=== PATIENT | female | born 1970 | race Caucasian/White ===

== ENCOUNTER → 2017-03-24 | Outpatient (REF) | payer OTHER ==
[~2017-03-24] MED LIST: ANTI25TA PO; CALCTAB52 PO; FLAX1200 PO; PRENTAB9 PO; PREV30CA6 PO; TOPA25TA PO; VITA200016 PO; WELLTAB PO; [UNRECOGNIZED DRUG - CODE] SL
== END ==
LOC: M LAB REF 16:00
PROVIDERS: ATTEND Physician Assistant
DX: R30.0 Dysuria (principal)

== ENCOUNTER → 2017-10-23 | Outpatient (CLI) | payer OTHER | LOC: M WUC 13:29 | DX: S23.41XS Sprain of ribs, sequela (principal) ==

== ENCOUNTER → 2018-01-10 | Outpatient (CLI) | payer MEDICAID ==
[2018-01-10 18:03] LABS: ANION GAP 12 MEQ/L (8-16); BLOOD UREA NITROGEN 7 MG/DL (7-18); CALCIUM LEVEL 9.1 MG/DL (8.5-10.1); CARBON DIOXIDE LEVEL 25 MEQ/L (21-32); CHLORIDE LEVEL 108 MEQ/L (98-107); CREATININE FOR GFR 0.55 MG/DL (0.55-1.30); GLOMERULAR FILTRATION RATE > 60.0 (>58); GLUCOSE, FASTING 92 MG/DL (70-100); SODIUM LEVEL 145 MEQ/L (136-145)
== END ==
LOC: M WUC 12:40
DX: I10 Essential (primary) hypertension (principal)
CPT/HCPCS: 80048

== ENCOUNTER → 2018-03-25 | Outpatient (CLI) | payer OTHER ==
[2018-03-25 13:13] LABS: ANION GAP 10 MEQ/L (8-16); BLOOD UREA NITROGEN 8 MG/DL (7-18); CALCIUM LEVEL 9.7 MG/DL (8.5-10.1); CARBON DIOXIDE LEVEL 25 MEQ/L (21-32); CHLORIDE LEVEL 104 MEQ/L (98-107); GLOMERULAR FILTRATION RATE > 60.0 (>58); GLUCOSE, FASTING 62 MG/DL (70-100); SODIUM LEVEL 139 MEQ/L (136-145)
== END ==
LOC: M LAB 10:09
DX: I10 Essential (primary) hypertension (principal)
CPT/HCPCS: 80048

== ENCOUNTER → 2018-04-01 | Outpatient (CLI) | payer OTHER | LOC: M WHC 11:01 | DX: Z12.31 Encounter for screening mammogram for malignant neoplasm of breast (principal) | CPT/HCPCS: 77067 ==

== ENCOUNTER → 2018-04-01 | Outpatient (REF) | payer OTHER ==
[2018-04-05 14:16] LABS: HPV HYBRID CAPTURE II Negative (Negative)
== END ==
LOC: M SFHCWAGY 11:52
DX: Z12.4 Encounter for screening for malignant neoplasm of cervix (principal)

== ENCOUNTER → 2018-08-27 | Outpatient (REF) | payer OTHER ==
[2018-08-27 10:33] LABS: INFLUENZA A AMPLIFICATION NEGATIVE (NEGATIVE); INFLUENZA B AMPLIFICATION NEGATIVE (NEGATIVE)
== END ==
LOC: M LAB REF 09:55
PROVIDERS: ATTEND Physician Assistant Medical
DX: J11.1 Influenza due to unidentified influenza virus with other respiratory manifestations (principal)

== ENCOUNTER → 2018-09-01 | Outpatient (CLI) | payer OTHER ==
[2018-09-01 07:31] LABS: C REACTIVE PROTEIN QUANTITATIV < 0.30 MG/DL (0.00-0.30); RHEUMATOID FACTOR QUANT < 10.0 IU/ML (<15.0); URIC ACID 6.6 MG/DL (2.6-6.0)
[2018-09-03 00:07] LABS: ANTINUCLEAR ANTIBODIES DIRECT Negative (Negative); Lyme Disease IgG/IgM Antibodie <0.91 ISR (0.00-0.90); Lyme Disease IgM Ab Quantitati <0.80 index (0.00-0.79)
== END ==
LOC: M LAB 06:22
PROVIDERS: ATTEND Physician Assistant
DX: M19.031 Primary osteoarthritis, right wrist (principal)

== ENCOUNTER 2018-09-20 15:45 | Outpatient (RCR) | payer OTHER | END 2018-09-25 | LOC: M PT 15:45 | PROVIDERS: ATTEND Physician Assistant | DX: Z51.89 Encounter for other specified aftercare (principal); M19.031 Primary osteoarthritis, right wrist ==

== ENCOUNTER → 2019-04-20 | Outpatient (CLI) | payer BC ==
--- NOTE | 2019-04-20 11:00 | REPMRS ---
Patient History The patient states she had a clinical breast exam in 03/2019. Family history of breast cancer at age 50 or over in paternal grandmother, breast cancer at age 50 or over in paternal aunt, breast cancer at age 50 or over in paternal aunt, pancreatic cancer at age 87 in maternal grandmother. Took unspecified hormones for 3 years. 3D TOMOSYNTHESIS WAS PERFORMED. The [facility] lifetime risk for breast cancer is 14.8%. Digital Woman Screen Mammo: April 20, 2019 - Exam #: [id number] Bilateral CC and MLO view(s) were taken. Technologist: Madhavi Stanley, Technologist Prior study comparison: April 01, 2018, bilateral digital woman screen mammo performed at [facility]. April 17, 2015, digital woman screen mammo performed at [facility]. FINDINGS: There are scattered fibroglandular densities. There has been no change in the appearance of the mammogram from the prior studies. There is a mild amount of residual fibroglandular tissue which is fairly symmetric. There is no interval development of dominant mass, architectural distortion, or clustered microcalcification suggestive of malignancy. Assessment: BI-RADS/ACR category 1 mammogram. Negative Mammogram. Recommendation Routine screening mammogram in 1 year (for women over age 40). This mammogram was interpreted with the aid of an FDA-approved computer-aided dectection system. Electronically Signed By: Robert Johnson MD 04/20/19 [id number]
== END ==
LOC: M WHC 08:17
PROVIDERS: ATTEND Nurse Practitioner Women's Health
DX: Z12.31 Encounter for screening mammogram for malignant neoplasm of breast (principal); Z80.3 Family history of malignant neoplasm of breast; Z80.0 Family history of malignant neoplasm of digestive organs

== ENCOUNTER → 2019-07-03 | Outpatient (CLI) | payer BC ==
[2019-07-03 08:25] LABS: BASO # 0.1 10^3/uL (0.0-0.2); BASO % 0.8 % (0.0-1.0); EOS # 0.2 10^3/uL (0.0-0.5); EOS % 2.2 % (0.0-3.0); HEMATOCRIT 40.3 % (36.0-47.0); HEMOGLOBIN 13.4 g/dl (12.0-15.5); LYMPH # 2.1 10^3/uL (1.5-5.0); LYMPH % 26.8 % (24.0-44.0); MEAN CORPUSCULAR HEMOGLOBIN 34.5 pg (27.0-33.0); MEAN CORPUSCULAR HGB CONC 33.3 g/dl (32.0-36.5); MEAN CORPUSCULAR VOLUME 103.9 fl (80.0-96.0); MONO # 0.8 10^3/uL (0.0-0.8); MONO % 10.3 % (0.0-5.0); NEUTROPHILS # 4.7 10^3/uL (1.5-8.5); NEUTROPHILS % 59.5 % (36.0-66.0); PLATELET COUNT, AUTOMATED 290 10^3/uL (150-450); RED BLOOD COUNT 3.88 10^6/uL (4.00-5.40); WHITE BLOOD COUNT 7.9 10^3/uL (4.0-10.0)
[2019-07-03 08:53] LABS: ALBUMIN 2.9 GM/DL (3.2-5.2); ALT/SGPT 19 U/L (12-78); BILIRUBIN,TOTAL 0.2 MG/DL (0.2-1.0); BLOOD UREA NITROGEN 8 MG/DL (7-18); CALCIUM LEVEL 8.4 MG/DL (8.5-10.1); CARBON DIOXIDE LEVEL 24 MEQ/L (21-32); CHLORIDE LEVEL 109 MEQ/L (98-107); CHOLESTEROL LEVEL 162 MG/DL (<200); CHOLESTEROL RISK RATIO 2.612 (<5); CREATININE FOR GFR 0.66 MG/DL (0.55-1.30); FREE T4 0.87 NG/DL (0.76-1.46); GLOMERULAR FILTRATION RATE > 60.0 (>58); GLUCOSE, FASTING 79 MG/DL (70-100); HDL CHOLESTEROL 62 MG/DL (>40); LDL CHOLESTEROL 79 MG/DL (<100); MAGNESIUM LEVEL 2.2 MG/DL (1.8-2.4); NON-HDL-C 100 MG/DL; POTASSIUM SERUM 4.1 MEQ/L (3.5-5.1); SODIUM LEVEL 140 MEQ/L (136-145); TOTAL PROTEIN 6.2 GM/DL (6.4-8.2); TRIGLYCERIDES LEVEL 103 MG/DL (<150)
[2019-07-03 09:02] LABS: FOLATE 6.6 NG/ML; TOTAL 25(OH) VITAMIN D 13.7 NG/ML (30.0-100.0)
[2019-07-03 09:29] LABS: VITAMIN B12 LEVEL 315 PG/ML
[2019-07-03 11:32] LABS: HEMOGLOBIN A1c 5.6 %
== END ==
LOC: M LAB 07:11
PROVIDERS: ATTEND Nurse Practitioner Family
DX: E78.5 Hyperlipidemia, unspecified (principal); E55.9 Vitamin D deficiency, unspecified; I10 Essential (primary) hypertension; F32.9 Major depressive disorder, single episode, unspecified; Z98.84 Bariatric surgery status

== ENCOUNTER → 2019-07-26 | Outpatient (REF) | payer BC, OTHER ==
[2019-07-26 12:08] LABS: BASO # 0.1 10^3/uL (0.0-0.2); BASO % 0.7 % (0.0-1.0); EOS # 0.1 10^3/uL (0.0-0.5); EOS % 1.8 % (0.0-3.0); HEMATOCRIT 39.8 % (36.0-47.0); LYMPH # 1.9 10^3/uL (1.5-5.0); LYMPH % 27.5 % (24.0-44.0); MEAN CORPUSCULAR HEMOGLOBIN 33.2 pg (27.0-33.0); MEAN CORPUSCULAR HGB CONC 32.7 g/dl (32.0-36.5); MEAN CORPUSCULAR VOLUME 101.5 fl (80.0-96.0); MONO # 0.8 10^3/uL (0.0-0.8); NEUTROPHILS # 4.1 10^3/uL (1.5-8.5); NEUTROPHILS % 58.6 % (36.0-66.0); PLATELET COUNT, AUTOMATED 325 10^3/uL (150-450); RED BLOOD COUNT 3.92 10^6/uL (4.00-5.40); WHITE BLOOD COUNT 7.1 10^3/uL (4.0-10.0)
[2019-07-26 12:36] LABS: ERYTHROCYTE SEDIMENTATION RATE 17 mm/hr (0-20)
[2019-07-26 12:46] LABS: BLOOD UREA NITROGEN 13 MG/DL (7-18); C REACTIVE PROTEIN QUANTITATIV < 0.30 MG/DL (0.00-0.30); CALCIUM LEVEL 8.7 MG/DL (8.5-10.1); CARBON DIOXIDE LEVEL 26 MEQ/L (21-32); CHLORIDE LEVEL 105 MEQ/L (98-107); CREATININE FOR GFR 0.74 MG/DL (0.55-1.30); GLOMERULAR FILTRATION RATE > 60.0 (>58); GLUCOSE, FASTING 60 MG/DL (70-100); RHEUMATOID FACTOR QUANT < 10.0 IU/ML (<15.0); SODIUM LEVEL 138 MEQ/L (136-145)
[2019-07-28 00:08] LABS: ANA (HEP2) Negative (.); CYCLIC CITRULLINATED PEPTIDE 7 units (0-19)
== END ==
LOC: M SFHCPLAZ 09:56
PROVIDERS: ATTEND Nurse Practitioner Family
DX: M25.50 Pain in unspecified joint (principal)

== ENCOUNTER → 2019-08-30 | Outpatient (REF) | payer BC, OTHER ==
[2019-08-30 14:40] LABS: ALBUMIN 3.4 GM/DL (3.2-5.2); ALT/SGPT 22 U/L (12-78); BILIRUBIN,TOTAL 0.4 MG/DL (0.2-1.0); BLOOD UREA NITROGEN 11 MG/DL (7-18); CALCIUM LEVEL 8.8 MG/DL (8.5-10.1); CARBON DIOXIDE LEVEL 28 MEQ/L (21-32); CHLORIDE LEVEL 104 MEQ/L (98-107); CREATININE FOR GFR 0.77 MG/DL (0.55-1.30); GLOMERULAR FILTRATION RATE > 60.0 (>58); GLUCOSE, FASTING 81 MG/DL (70-100); NT-PRO BNP 121 PG/ML (<125); POTASSIUM SERUM 4.1 MEQ/L (3.5-5.1); SODIUM LEVEL 137 MEQ/L (136-145); TOTAL PROTEIN 6.7 GM/DL (6.4-8.2)
[2019-08-30 14:46] LABS: CREATININE,RANDOM URINE 30.9 MG/DL; TOTAL PROTEIN,RANDOM URINE 11.7 MG/DL (0.0-12.0)
== END ==
LOC: M SFHCPLAZ 11:22
PROVIDERS: ATTEND Family Medicine
DX: R60.9 Edema, unspecified (principal); B02.29 Other postherpetic nervous system involvement

== ENCOUNTER → 2020-04-16 | Outpatient (CLI) | payer BC ==
[2020-04-16 16:44] LABS: BASO # 0.1 10^3/uL (0.0-0.2); BASO % 0.5 % (0.0-1.0); EOS # 0.2 10^3/uL (0.0-0.5); HEMATOCRIT 38.9 % (36.0-47.0); HEMOGLOBIN 13.1 g/dl (12.0-15.5); LYMPH # 2.3 10^3/uL (1.5-5.0); LYMPH % 24.6 % (24.0-44.0); MEAN CORPUSCULAR HGB CONC 33.7 g/dl (32.0-36.5); MEAN CORPUSCULAR VOLUME 95.1 fl (80.0-96.0); MONO # 0.7 10^3/uL (0.0-0.8); MONO % 7.6 % (0.0-5.0); NEUTROPHILS % 64.9 % (36.0-66.0); PLATELET COUNT, AUTOMATED 234 10^3/uL (150-450); RED BLOOD COUNT 4.09 10^6/uL (4.00-5.40); WHITE BLOOD COUNT 9.3 10^3/uL (4.0-10.0)
[2020-04-16 17:15] LABS: ALBUMIN 3.4 GM/DL (3.2-5.2); ALT/SGPT 23 U/L (12-78); BILIRUBIN,TOTAL 0.2 MG/DL (0.2-1.0); BLOOD UREA NITROGEN 20 MG/DL (7-18); CARBON DIOXIDE LEVEL 26 MEQ/L (21-32); CHLORIDE LEVEL 104 MEQ/L (98-107); CHOLESTEROL LEVEL 182 MG/DL (<200); CREATININE FOR GFR 0.94 MG/DL (0.55-1.30); FREE T4 1.01 NG/DL (0.76-1.46); GLOMERULAR FILTRATION RATE > 60.0 (>58); GLUCOSE, FASTING 87 MG/DL (70-100); HDL CHOLESTEROL 54 MG/DL (>40); LDL CHOLESTEROL 78 MG/DL (<100); MAGNESIUM LEVEL 2.1 MG/DL (1.8-2.4); NON-HDL-C 128 MG/DL; POTASSIUM SERUM 3.9 MEQ/L (3.5-5.1); SODIUM LEVEL 137 MEQ/L (136-145); TOTAL PROTEIN 6.7 GM/DL (6.4-8.2); TRIGLYCERIDES LEVEL 252 MG/DL (<150)
[2020-04-16 17:23] LABS: FOLATE 22.4 NG/ML (>5.4); TOTAL 25(OH) VITAMIN D 57.9 NG/ML (30.0-100.0); VITAMIN B12 LEVEL 506 PG/ML (247-911)
== END ==
LOC: M LAB 16:06
PROVIDERS: ATTEND Nurse Practitioner Family
DX: I10 Essential (primary) hypertension (principal); E55.9 Vitamin D deficiency, unspecified; R42 Dizziness and giddiness; Z13.220 Encounter for screening for lipoid disorders; Z98.84 Bariatric surgery status

== ENCOUNTER → 2020-04-23 | Outpatient (CLI) | payer BC ==
--- NOTE | 2020-04-23 09:56 | REPMRS ---
Patient History The patient states she had a clinical breast exam in March 2020. Family history of breast cancer at age 50 or over in paternal grandmother, breast cancer at age 50 or over in paternal aunt, breast cancer at age 50 or over in paternal aunt, pancreatic cancer at age 87 in maternal grandmother. Took unspecified hormones for 3 years. 3D TOMOSYNTHESIS WAS PERFORMED. The [facility] lifetime risk for breast cancer is 14.6%. Volpara breast density b. Digital Woman Screen Mammo: April 23, 2020 - Exam #: [id number] Bilateral CC and MLO view(s) were taken. Technologist: RT Conner Prior study comparison: April 20, 2019, bilateral digital woman screen mammo performed at [facility]. April 01, 2018, bilateral digital woman screen mammo performed at [facility]. FINDINGS: There are scattered fibroglandular densities. There has been no change in the appearance of the mammogram from the prior studies. There is a mild amount of residual fibroglandular tissue which is fairly symmetric. There is no interval development of dominant mass, architectural distortion, or clustered microcalcification suggestive of malignancy. Assessment: BI-RADS/ACR category 1 mammogram. Negative Mammogram. Recommendation Routine screening mammogram in 1 year (for women over age 40). This mammogram was interpreted with the aid of an FDA-approved computer-aided dectection system. Electronically Signed By: Robert Johnson MD 04/23/20 0955
== END ==
LOC: M WHC 07:30
PROVIDERS: ATTEND Nurse Practitioner Women's Health
DX: Z12.31 Encounter for screening mammogram for malignant neoplasm of breast (principal)

== ENCOUNTER → 2020-07-25 | Outpatient (REF) | payer BC ==
[~2020-07-25] MED LIST changes: +ATEN25TA PO; +D31000TA2 PO; +FLUO20CA22 PO; +HYDR12CA PO; +LANS30CA93 PO; +PRENMIS3 PO; +TELM1TAB33 PO
[2020-07-25 18:04] LABS: BASO % 0.6 % (0.0-1.0); EOS # 0.2 10^3/uL (0.0-0.5); EOS % 2.2 % (0.0-3.0); HEMATOCRIT 35.9 % (36.0-47.0); HEMOGLOBIN 11.8 g/dl (12.0-15.5); LYMPH # 2.1 10^3/uL (1.5-5.0); LYMPH % 30.4 % (24.0-44.0); MEAN CORPUSCULAR HGB CONC 32.9 g/dl (32.0-36.5); MEAN CORPUSCULAR VOLUME 100.3 fl (80.0-96.0); MONO # 0.4 10^3/uL (0.0-0.8); MONO % 5.3 % (0.0-5.0); NEUTROPHILS # 4.2 10^3/uL (1.5-8.5); NEUTROPHILS % 60.9 % (36.0-66.0); PLATELET COUNT, AUTOMATED 268 10^3/uL (150-450); RED BLOOD COUNT 3.58 10^6/uL (4.00-5.40); WHITE BLOOD COUNT 6.8 10^3/uL (4.0-10.0)
[2020-07-25 18:16] LABS: INR 0.93; PROTHROMBIN TIME 12.7 SECONDS (12.5-14.3)
[2020-07-25 18:17] LABS: PARTIAL THROMBOPLASTIN TIME 27.1 SECONDS (24.2-38.5)
[2020-07-25 18:38] LABS: ALBUMIN 3.2 GM/DL (3.2-5.2); ALT/SGPT 25 U/L (12-78); BILIRUBIN,TOTAL 0.1 MG/DL (0.2-1.0); BLOOD UREA NITROGEN 13 MG/DL (7-18); CALCIUM LEVEL 8.6 MG/DL (8.5-10.1); CARBON DIOXIDE LEVEL 28 MEQ/L (21-32); CHLORIDE LEVEL 106 MEQ/L (98-107); CREATININE FOR GFR 0.97 MG/DL (0.55-1.30); GLOMERULAR FILTRATION RATE > 60.0 (>58); GLUCOSE, FASTING 185 MG/DL (70-100); NT-PRO BNP 150 PG/ML (<125); POTASSIUM SERUM 3.8 MEQ/L (3.5-5.1); SODIUM LEVEL 139 MEQ/L (136-145); TOTAL PROTEIN 6.2 GM/DL (6.4-8.2)
== END ==
LOC: M SFHCPLAZ 15:41
PROVIDERS: ATTEND Family Medicine
DX: I10 Essential (primary) hypertension (principal)

== ENCOUNTER → 2020-07-27 | Outpatient (CLI) | payer BC, SELFPAY | LOC: M LABSMTC 10:21 | PROVIDERS: ATTEND Anesthesiology | DX: Z01.812 Encounter for preprocedural laboratory examination (principal); Z20.822 Contact with and (suspected) exposure to COVID-19 ==

== ENCOUNTER 2020-08-01 06:03 | Day surgery (SDC) | payer BC ==
[~2020-08-01] VITALS: Ht 160 cm; Wt 90.7 kg
[2020-08-01] VITALS (7 sets, daily range): BP systolic 121–138; BP diastolic 71–87
[~2020-08-01 06:03] MED LIST changes: +HEPARIN SOD (PORCINE) 5000UNITS/ML 1ML VIAL/SYRINGE SQ ONE; +LIDOCAINE 1% MDV 20ML VIAL SQ PRN; +LR 1,000 ML IV ONE; +ceFAZolin SOD 1 GM in D5W MINI-BAG PLUS 50 ML IV ONE
[2020-08-01] MEDS ORDERED: ROCURONIUM BROMIDE 50 MG/5 ML VIAL As Ordered ONE ×3 (07:23→09:25)
[2020-08-01] MEDS ORDERED: fentaNYL 250 MCG/5 ML INJECTION (J3010) As Ordered ONE (07:23)
[2020-08-01] MEDS ORDERED: propofoL 200 MG/20 ML VIAL As Ordered ONE (07:23)
[2020-08-01] MEDS ORDERED: dexameTHASONE 4 MG/ML 1ML VIAL (J1100 PER 1MG) As Ordered ONE (07:23)
[2020-08-01] MEDS ORDERED: THROMBIN SOLN 20,000 UNITS KIT As Ordered ONE (07:23)
[2020-08-01] MEDS ORDERED: ONDANSETRON 4MG/2ML VIAL As Ordered ONE (07:23)
[2020-08-01] MEDS ORDERED: LIDOCAINE 2% 100MG/5ML SDV (FOR ANES.) As Ordered ONE (07:23)
[2020-08-01] MEDS ORDERED: BUPIVACAINE LIPOSOME/PF 1.3% 20ML VIAL (13.3MG/ML)(EXPAREL)(C9290 PER1MG) As Ordered ONE (07:23)
[2020-08-01] MEDS ORDERED: BACITRACIN PWD 50,000 UNITS VIAL As Ordered ONE (07:24)
[2020-08-01] MEDS ORDERED: MIDAZOLAM INJ 2MG/2ML VIAL (J2250 PER 1MG) As Ordered ONE (07:24)
[2020-08-01] MEDS ORDERED: SCOPOLAMINE 1MG TRANSDERMAL PATCH As Ordered ONE (07:24)
[2020-08-01] MEDS ORDERED: SCOPOLAMINE 1MG TRANSDERMAL PATCH TOP ONE (08:00)
[2020-08-01] MEDS ORDERED: ePHEDrine SULFATE 25 MG/5 ML(5MG/ML) SYRINGE As Ordered ONE ×2 (08:06→09:35)
[2020-08-01] MEDS ORDERED: METOCLOPRAMIDE INJ 10MG/2ML VIAL (J2765 PER 1) As Ordered ONE (08:36)
[2020-08-01] MEDS ORDERED: SUGAMMADEX SODIUM 500 MG/5 ML VIAL (BRIDION) As Ordered ONE (08:41)
[2020-08-01] MEDS ORDERED: HYDROmorphone HCL 2 MG/ML 1ML VIAL (J1170) As Ordered ONE (08:41)
[2020-08-01] MEDS ORDERED: GLYCOPYRROLATE INJ 0.2 MG/ML 2 ML VIAL As Ordered ONE (08:43)
[2020-08-01] MEDS: FLUoxetine 20 MG CAP PO SCH (09:00)
[2020-08-01] MEDS ORDERED: ACETAMINOPHEN 1000MG 100ML IV BTL (OFIRMEV) (J0131 PER 10MG) As Ordered ONE (09:52)
[2020-08-01] MEDS: LR 1,000 ML IV SCH (11:07)
--- NOTE | 2020-08-01 11:07 | ROOPDOC ---
[facility] Report Of Operation Report of Operation DATE OF PROCEDURE: 08/01/20 PREOPERATIVE DIAGNOSIS: Panniculitis POSTOPERATIVE DIAGNOSIS: same FINDINGS: Large pannus PROCEDURE: Extended panniculectomy with rectus muscle plication. SURGEON: Dr Marrero ANESTHESIA: General SPECIMENS: Pannus 3674 gm. ESTIMATED BLOOD LOSS: 200 ml REPLACED: none DRAINS: 10 mm TO x 4 COMPLICATIONS: none POSTOPERATIVE CONDITION: stable Procedure: This is a 50-year-old female status post significant weight loss. Patient has excessive pannus above and mostly below the umbilicus with large mons pubis ptosis. Patient is scheduled for extended panniculectomy. Risks benefits and alternatives discussed with the patient in details. Informed consent confirmed and preoperative holding area. Patient was marked in upright position. She was brought into the operating room, placed in supine position, preoperative antibiotics given, sequential stockings placed in the lower calves, and then general anesthesia is induced. 5000 units heparin given subcutaneously. Fully introduced in the bladder without any difficulties with yellow clear urine present. She was prepped and draped in the usual sterile fashion. Lower abdominal incision made 7 cm above the labial crease along patient's natural suprapubic crease. Incision carried out with 10 blade. Careful sharp dissection with electrocautery and peek cautery was done until the fascia of rectus muscle is identified. Following the musculoaponeurotic fascial plane sup eriorly, the abdominal skin and subcutaneous tissue are undermined. Vessels were identified throughout and either cauterized or suture ligated for hemostasis control. Significant scarring was encountered at the lower mid abdominal area status post section surgery. Fascia completely intact. Infraumbilical flap was divided in the middle to aid the dissection. We continued our dissection until umbilicus was encountered. Rhomboid incision made around the umbilicus and dissection continued until xiphoid process superiorly and costal margins laterally. Rectus muscle evaluated and diathesis was identified 7 cm midline. Rectus muscle was plicated with 0 Vicryl sutures in interrupted fashion, followed by #1 PDS running locked suture. Wound is irrigated with bacitracin normal saline irrigation. Exparel block given into rectus muscle total 16 mL. Patient placed on placed in the reflex position and excess tissue which consists off abdominal skin and subcutaneous tissue was measured and resected using electrocautery. Total weight of the pannus 3674 g. Careful hemostasis was assured. The flap was realigned and was started all closure with deep sutures of 0 Vicryl realigning the mons pubis and closing the lower abdominal incision. 3 mL Monocryl V lock suture used for subcutaneous closure followed by 3-0 Monocryl interrupted sutures as well. Four 10 mm Rahul-Stratton drains were placed throughout lower abdominal incision. New opening was created for the umbilical stump using electrocautery. The umbilicus was brought into view and sutured in place with interrupted 3-Monocryl sutures and 5-0 plain gut sutures in the running fashion. Remaining Exparel was given into the lower abdominal incision and the drain area. Prinio dressing applied to lower abdominal incision, Xeroform to umbilicus, and bulky dressing throughout. Abdominal binder applied. Patient extubated in the operating room without any difficulties and transferred to recovery room in stable condition. ZE MARRERO DO Aug 01, 2020 11:07
--- NOTE | 2020-08-01 11:07 | POST-OPPD ---
Postoperative Procedure Note Date Of Procedure: Aug 01, 2020 PREOPERATIVE DIAGNOSIS: Panniculitis POSTOPERATIVE DIAGNOSIS: same FINDINGS: Large pannus PROCEDURE: Extended panniculectomy with rectus muscle plication. SURGEON: Dr Marrero ANESTHESIA: General SPECIMENS: Pannus 3674 gm. ESTIMATED BLOOD LOSS: 200 ml REPLACED: none DRAINS: 10 mm TO x 4 COMPLICATIONS: none POSTOPERATIVE CONDITION: stable ZE MARRERO DO Aug 01, 2020 11:07
[2020-08-01] MEDS ORDERED: ACETAMINOPHEN TAB 650MG DOSE (2X325MG) PO PRN (11:15)
[2020-08-01] MEDS ORDERED: ONDANSETRON 4MG/2ML VIAL IV PRN ×2 (11:15→11:45)
[2020-08-01] MEDS ORDERED: MORPHINE 4 MG/ML 1ML VIAL/SYRINGE (J2270) IV PRN (11:15)
[2020-08-01] MEDS ORDERED: KETOROLAC TROMETHAMINE 10 MG TAB PO PRN (11:15)
[2020-08-01] MEDS ORDERED: oxyCODONE 5MG TAB PO PRN (11:45)
[2020-08-01] MEDS ORDERED: LR 1,000 ML IV SCH (11:45)
[2020-08-01] MEDS ORDERED: METOCLOPRAMIDE INJ 10MG/2ML VIAL (J2765 PER 1) IV PRN (11:45)
[2020-08-01] MEDS ORDERED: HYDROMORPHONE HCL 0.5 MG/ 0.5 ML SYRINGE (J1170 PER 1) IV PRN (11:45)
[2020-08-01] MEDS ORDERED: fentaNYL 100 MCG/2 ML INJECTION (J3010) IV PRN (11:45)
[2020-08-01] MEDS: PERCOCET 5MG/325MG TAB PO PRN ×2 (13:56→20:06)
[2020-08-01 18:24] LABS: BASO % 0.1 % (0.0-1.0); LYMPH # 0.6 10^3/uL (1.5-5.0); LYMPH % 4.9 % (24.0-44.0); MEAN CORPUSCULAR HEMOGLOBIN 33.6 pg (27.0-33.0); MEAN CORPUSCULAR HGB CONC 33.3 g/dl (32.0-36.5); MEAN CORPUSCULAR VOLUME 100.8 fl (80.0-96.0); MONO # 0.4 10^3/uL (0.0-0.8); MONO % 3.1 % (0.0-5.0); NEUTROPHILS # 10.9 10^3/uL (1.5-8.5); NEUTROPHILS % 91.6 % (36.0-66.0); PLATELET COUNT, AUTOMATED 267 10^3/uL (150-450); RED BLOOD COUNT 3.57 10^6/uL (4.00-5.40); WHITE BLOOD COUNT 11.9 10^3/uL (4.0-10.0)
[2020-08-02 02:00] VITALS: BP 120/71
[2020-08-02] MEDS: PERCOCET 5MG/325MG TAB PO PRN ×3 (02:27→11:44)
[2020-08-02] MEDS: LR 1,000 ML IV SCH (02:28)
[2020-08-02 06:00] VITALS: BP 126/75
[2020-08-02 08:02] VITALS: BP 126/75
[2020-08-02] MEDS: FLUoxetine 20 MG CAP PO SCH (08:03)
[2020-08-02] MEDS ORDERED: TELMISARTAN 20 MG TAB PO SCH (09:00)
[2020-08-02] MEDS ORDERED: atenoloL 25 MG TAB PO SCH (09:00)
--- NOTE | 2020-08-02 10:08 | IPNPDOC ---
Subjective General Date Seen: Aug 02, 2020 Subject Chief Complaint/History The patient is a 50-year-old female admitted with a reason for visit of Panniculitis. Patient is s/p extended panniculectomy with rectus muscle plication postop day 1. Feeling well, pain controlled. Ambulating by herself, tolerating regular diet . Minimal drainage. No dizziness, lightheadedness, chest pain, shortness of breath. Current Medications Current Medications Current Medications Medications (Trade) Dose Ordered Sig/Johnson Route PRN Reason Start Time Stop Time Status Last Admin Dose Admin Acetaminophen (Tylenol Tab) 650 mg Q6H PRN PO MILD PAIN (PS 1-4) 08/01/20 11:15 Atenolol (Tenormin) 25 mg DAILY PO 08/02/20 09:00 08/02/20 08:02 Fentanyl Citrate (Sublimaze) 25 mcg Q5MP PRN IV PAIN LEVEL 5-10 08/01/20 11:45 08/01/20 12:45 DC Fluoxetine HCl (PROzac) 20 mg DAILY PO 08/01/20 09:00 08/02/20 08:03 Hydromorphone HCl (Dilaudid) 0.4 mg Q5MP PRN IV PAIN LEVEL 4-7 08/01/20 11:45 08/01/20 12:45 DC Ketorolac Tromethamine (ToRADol) 10 mg Q6HP PRN PO MODERATE PAIN (PS 5-7) 08/01/20 11:15 08/01/20 12:25 DC Lactated Ringer's 1,000 ml @ 75 mls/hr [id number] IV 08/01/20 11:07 08/02/20 02:28 Lactated Ringer's 1,000 ml @ 100 mls/hr Q10H IV 08/01/20 11:45 08/01/20 12:45 DC Lidocaine HCl (LIDOCAINE 1% MDV 20ml) 0.1 ml ONCE PRN SQ DISCOMFORT BEFORE IV START 08/01/20 06:00 Metoclopramide HCl (REGLAN INJection) 10 mg Q6HP PRN IV NAUSEA OR VOMITING 08/01/20 11:45 08/01/20 12:45 DC Morphine Sulfate (Morphine Sulfate Inj) 4 mg Q4HP PRN IV SEVERE PAIN (PS 8-10) 08/01/20 11:15 08/01/20 15:37 Ondansetron HCl (ZOFRAN INJection) 4 mg Q4H PRN IV NAUSEA OR VOMITING 08/01/20 11:15 Ondansetron HCl (ZOFRAN INJection) 4 mg Q4HP PRN IV NAUSEA OR VOMITING 08/01/20 11:45 08/01/20 12:45 DC Oxycodone HCl (Roxicodone, Oxyir) 5 mg ASDIRECTED PRN PO PAIN LEVEL 1-4 08/01/20 11:45 08/01/20 12:45 DC 08/01/20 11:55 Oxycodone/ Acetaminophen (Percocet 5mg/ 325mg Tablet) 2 tab Q4HP PRN PO PAIN LEVEL 4-7 08/01/20 11:15 08/02/20 08:02 Telmisartan (Micardis) 20 mg DAILY PO 08/02/20 09:00 08/02/20 08:03 Allergies Coded Allergies: No Known Drug Allergies (Verified Allergy, Unknown, 07/23/20) Objective Physical Examination Examination GENERAL APPEARANCE:Patient seen, laying in bed, awake, alert, and oriented. Comfortable, in no acute distress. SKIN: Warm and moist. NECK: Supple, no thyromegaly. No obvious jugular venous distention. LUNGS: Clear to auscultation bilaterally. No wheezing appreciated. HEART: No chest wall abnormalities. Regular rate and rhythm with no murmurs appreciated. ABDOMEN: Abdomen is soft, non-tender, non-distended. Incision intact. Umbilicus viable. TO drains with serosanguinous drainage. 5/20/20/20 cc/24hr each drain. EXTREMITIES: No edema identified. No calf tenderness. Vital Signs Vital Signs Date Time Temp Pulse Resp B/P (MAP) Pulse Ox O2 Delivery O2 Flow Rate FiO2 08/02/20 08:02 18 Room Air 08/02/20 08:02 58 126/75 08/02/20 06:00 98.0 95 08/01/20 11:30 3 I&Os I&O- Last 24 Hours up to 6 AM 08/02/20 06:00 Intake Total 3250 ml Output Total 2460 ml Balance 790 ml Laboratory Data Labs 24H Laboratory Tests 2 08/01/20 17:43: Immature Granulocyte % (Auto) 0.3, Neutrophils (%) (Auto) 91.6H, Lymphocytes (%) (Auto) 4.9L, Monocytes (%) (Auto) 3.1, Eosinophils (%) (Auto) 0.0, Basophils (%) (Auto) 0.1, Neutrophils # (Auto) 10.9H, Lymphocytes # (Auto) 0.6L, Monocytes # (Auto) 0.4, Eosinophils # (Auto) 0.0, Basophils # (Auto) 0.0, Nucleated Red Blood Cells % (auto) 0.0 CBC/BMP Laboratory Tests 08/01/20 17:43 Impression Status post extended panniculectomy with rectus muscle plication postop day 1 Stable for discharge. Monitor TO drains at home, keep abdominal binder in place. Small meals through the day force fluids. Pain control Percocet prescription. Follow-up plastic surgery next week. Plan / VTE VTE Prophylaxis Ordered?: Yes ZE MARRERO DO Aug 02, 2020 10:07
[2020-08-02] MEDS ORDERED: PERCOCET PO (10:14)
== END 2020-08-02 11:50 | disposition home or self-care (01) ==
LOC: M SDC 06:03 → M MS5PR 13:35 → M SDC 08-02 11:50
PROVIDERS: ATTEND Plastic Surgery Surgery of the Hand
DX: M54.07 Panniculitis affecting regions of neck and back, lumbosacral region (principal); L98.7 Excessive and redundant skin and subcutaneous tissue; Z98.84 Bariatric surgery status; I10 Essential (primary) hypertension; K21.9 Gastro-esophageal reflux disease without esophagitis; D50.9 Iron deficiency anemia, unspecified; F17.218 Nicotine dependence, cigarettes, with other nicotine-induced disorders; F41.9 Anxiety disorder, unspecified; F32.9 Major depressive disorder, single episode, unspecified; Z79.899 Other long term (current) drug therapy
CPT/HCPCS: 15830; 15847; 36415; 85025; 86850; 86900; 86901; 88302; 96374; A6024; C9290; J0131; J0690; J1100; J1170; J1644; J2250; J2270; J2405; J2765; J3010

== ENCOUNTER → 2021-01-17 | Outpatient (REF) ==
[~2021-01-17] MED LIST changes: -HEPARIN SOD (PORCINE) 5000UNITS/ML 1ML VIAL/SYRINGE SQ ONE; -LIDOCAINE 1% MDV 20ML VIAL SQ PRN; -LR 1,000 ML IV ONE; +PERCOCET PO; -ceFAZolin SOD 1 GM in D5W MINI-BAG PLUS 50 ML IV ONE
== END ==
LOC: M LABSMTC 10:27
PROVIDERS: ATTEND Pediatrics
DX: Z20.822 Contact with and (suspected) exposure to COVID-19 (principal); Z11.59 Encounter for screening for other viral diseases

== ENCOUNTER → 2021-03-19 | Outpatient (CLI) | payer BC ==
--- NOTE | 2021-03-19 16:14 | REP ---
INDICATION: PELVIC AND PERINEAL PAIN. COMPARISON: 09/14/2011. TECHNIQUE: Transabdominal and transvaginal scanning performed. FINDINGS: Uterine dimensions are 9.4 x 4.9 x 5.6 cm. Endometrial echo is 2 mm in AP dimension and centrally placed. There is diffuse increased echotexture of the anterior uterus. This could represent postsurgical change or diffuse adenomyosis. The bladder measures 9.7 x 9.3 x 9.2cm. The right ovary is not visualized The left ovary dimensions are 2.5 x 2.2 x 2.2 cm. It's Doppler flow was normal with resistive index of 0.44. A complex cystic structure of the left ovary measures 2.1 x 2.0 x 1.8 cm. No free fluid is seen in the cul-de-sac. IMPRESSION: Diffuse increased echotexture in the anterior uterus may represent postsurgical change or adenomyosis. Endometrial thickness approximately 2 mm. Right ovary not visualized. Small complex cystic structure left ovary 2.1 cm. No torsion or free fluid. <Electronically signed by Robert Johnson > 03/19/21 [id number]
== END ==
LOC: M RAD 15:33
PROVIDERS: ATTEND Obstetrics & Gynecology
DX: R10.2 Pelvic and perineal pain (principal)

== ENCOUNTER → 2021-04-30 | Outpatient (CLI) | payer BC ==
--- NOTE | 2021-05-01 08:48 | REPMRS ---
Patient History The patient states she had a clinical breast exam on 04-30-2021. Family history of breast cancer at age 50 or over in paternal grandmother, breast cancer at age 50 or over in paternal aunt, breast cancer at age 50 or over in paternal aunt, pancreatic cancer at age 87 in maternal grandmother. Took unspecified hormones for 3 years. Patient states no breast complaints today. Patient has signed MRS History Sheet. Digital Woman Screen Mammo: April 30, 2021 - Exam #: [id number] Bilateral CC and MLO view(s) were taken. Technologist: Joaquina Bauer, Nurse Anesthetist Prior study comparison: April 23, 2020, bilateral digital woman screen mammo performed at [facility]. April 20, 2019, bilateral digital woman screen mammo performed at [facility]. FINDINGS: There are scattered fibroglandular densities. Screening. Digital screening (2D) mammography was performed bilaterally in the CC and MLO projections. Additionally, breast tomosynthesis (3D mammography) was performed bilaterally in the CC and MLO projections. Todays exam was compared to the prior exam/exams. By history, the patient has no complaints of a palpable breast abnormality or other significant breast complaints. The breasts are unchanged in size and shape. There are no sherri-soft tissue densities or spiculated masses. There is no internal architectural distortion.Once again, stable benign appearing calcifications are seen. There are no suspicious sherri-calcific clusters. Skin thickening or nipple retraction is not present. IMPRESSION: BI-RADS Category 2- Benign Findings. There is no evidence of malignant alteration of the breasts. Followup examination recommended in one year. The Volpara volumetric breast density category is B, there are scattered areas of fibroglandular densities. This mammogram was read with the assistance of [employer],an FDA approved computer aided detection system for mammography. The lifetime Tyrer-Cuzick score is 14 % Negative x-ray reports should not delay surgical consultation if a dominant or clinically suspicious mass is present. Not all breast cancers can be identified by mammography. Therefore, we recommend that you continue to perform regular breast self-examination and physical examination and then promptly contact your physician of any concerns or changes. Adenosis and dense breasts may obscure an underlying neoplasm. Assessment: BI-RADS/ACR category 2 mammogram. Benign Findings. Recommendation Routine screening mammogram of both breasts in 1 year. Electronically Signed By: Alex Yuen DO 05/01/21 [id number]
== END ==
LOC: M WHC 14:19
PROVIDERS: ATTEND Nurse Practitioner Women's Health
DX: Z12.31 Encounter for screening mammogram for malignant neoplasm of breast (principal); Z80.3 Family history of malignant neoplasm of breast

== ENCOUNTER → 2021-04-30 | Outpatient (REF) | payer BC | LOC: M SFHCWAGY 18:43 | PROVIDERS: ATTEND Nurse Practitioner Women's Health | DX: Z12.4 Encounter for screening for malignant neoplasm of cervix (principal) | CPT/HCPCS: 87624; G0123 ==

== ENCOUNTER → 2021-07-09 | Outpatient (REF) | LOC: M LABSMTC 11:25 | PROVIDERS: ATTEND Pediatrics | DX: Z11.52 Encounter for screening for COVID-19 (principal) ==

== ENCOUNTER → 2021-07-18 | Outpatient (CLI) | payer BC ==
[2021-07-18 13:25] LABS: BASO # 0.1 10^3/uL (0.0-0.2); BASO % 0.8 % (0.0-1.0); EOS # 0.2 10^3/uL (0.0-0.5); EOS % 2.2 % (0.0-3.0); HEMATOCRIT 40.6 % (36.0-47.0); HEMOGLOBIN 13.7 g/dl (12.0-15.5); LYMPH # 2.1 10^3/uL (1.5-5.0); LYMPH % 29.3 % (24.0-44.0); MEAN CORPUSCULAR HEMOGLOBIN 32.5 pg (27.0-33.0); MEAN CORPUSCULAR HGB CONC 33.7 g/dl (32.0-36.5); MEAN CORPUSCULAR VOLUME 96.4 fl (80.0-96.0); MONO # 0.6 10^3/uL (0.0-0.8); MONO % 8.3 % (2.0-8.0); NEUTROPHILS # 4.3 10^3/uL (1.5-8.5); NEUTROPHILS % 58.9 % (36.0-66.0); PLATELET COUNT, AUTOMATED 301 10^3/uL (150-450); RED BLOOD COUNT 4.21 10^6/uL (4.00-5.40); WHITE BLOOD COUNT 7.3 10^3/uL (4.0-10.0)
[2021-07-18 13:43] LABS: HEMOGLOBIN A1c 5.1 %
[2021-07-18 13:52] LABS: INR 0.98; PROTHROMBIN TIME 13.4 SECONDS (12.7-14.5)
[2021-07-18 13:53] LABS: PARTIAL THROMBOPLASTIN TIME 29.9 SECONDS (25.9-37.0)
[2021-07-18 13:56] LABS: ALBUMIN 3.1 GM/DL (3.2-5.2); ALT/SGPT 26 U/L (12-78); BILIRUBIN,TOTAL 0.3 MG/DL (0.2-1.0); BLOOD UREA NITROGEN 9 MG/DL (7-18); CALCIUM LEVEL 8.6 MG/DL (8.5-10.1); CARBON DIOXIDE LEVEL 28 MEQ/L (21-32); CHLORIDE LEVEL 109 MEQ/L (98-107); CREATININE FOR GFR 0.77 MG/DL (0.55-1.30); FERRITIN 21 NG/ML (8-252); GLOMERULAR FILTRATION RATE > 60.0 (>58); GLUCOSE, FASTING 85 MG/DL (70-100); NT-PRO BNP 195 PG/ML (<125); POTASSIUM SERUM 4.4 MEQ/L (3.5-5.1); SODIUM LEVEL 140 MEQ/L (136-145); TOTAL PROTEIN 6.2 GM/DL (6.4-8.2)
== END ==
LOC: M PLALAB 11:23
PROVIDERS: ATTEND Family Medicine
DX: Z01.818 Encounter for other preprocedural examination (principal); I10 Essential (primary) hypertension; D75.89 Other specified diseases of blood and blood-forming organs

== ENCOUNTER → 2021-08-02 | Outpatient (CLI) | payer BC ==
[~2021-08-02] MED LIST changes: +AZEL0.05 OU; +CALC1TAB30 PO; +FOLI1TAB11 PO; +GNP1000T11 PO; +[UNRECOGNIZED DRUG - CODE] PO
== END ==
LOC: M LABSMTC 11:54
PROVIDERS: ATTEND Anesthesiology
DX: Z01.818 Encounter for other preprocedural examination (principal); Z11.52 Encounter for screening for COVID-19

== ENCOUNTER 2021-08-07 06:01 | Day surgery (SDC) | payer BC ==
[~2021-08-07] VITALS: Ht 160 cm; Wt 99.8 kg
[2021-08-07] MEDS ORDERED: ceFAZolin 2 GM/D5W 50 ML IV BAG (J0690 PER 500MG) As Ordered ONE (06:43)
[2021-08-07] MEDS ORDERED: fentaNYL 100 MCG/2 ML INJECTION As Ordered ONE ×2 (07:10→08:33)
[2021-08-07] MEDS ORDERED: MIDAZOLAM INJ 2MG/2ML VIAL (J2250 PER 1MG) As Ordered ONE (07:10)
[2021-08-07] MEDS ORDERED: LIDOCAINE 2% 100MG/5ML SDV (FOR ANES.) As Ordered ONE (07:11)
[2021-08-07] MEDS ORDERED: ONDANSETRON 4MG/2ML VIAL As Ordered ONE (07:11)
[2021-08-07] MEDS ORDERED: dexameTHASONE 4 MG/ML 1ML VIAL (J1100 PER 1MG) As Ordered ONE (07:11)
[2021-08-07] MEDS ORDERED: propofoL 200 MG/20 ML VIAL As Ordered ONE (07:11)
[2021-08-07] MEDS ORDERED: ROCURONIUM BROMIDE 50 MG/5 ML VIAL As Ordered ONE ×2 (07:11→08:21)
[2021-08-07] MEDS ORDERED: METOCLOPRAMIDE INJ 10MG/2ML VIAL (J2765 PER 1) As Ordered ONE (07:11)
[2021-08-07 07:15] LABS: HEMATOCRIT 43.8 % (36.0-47.0); HEMOGLOBIN 14.3 g/dl (12.0-15.5); MEAN CORPUSCULAR HEMOGLOBIN 32.5 pg (27.0-33.0); MEAN CORPUSCULAR HGB CONC 32.6 g/dl (32.0-36.5); MEAN CORPUSCULAR VOLUME 99.5 fl (80.0-96.0); PLATELET COUNT, AUTOMATED 375 10^3/uL (150-450)
[2021-08-07] MEDS ORDERED: METHYLENE BLUE 0.5% (5MG/ML) 10 ML AMP (PROVAYBLUE) As Ordered ONE (07:17)
[2021-08-07] MEDS ORDERED: ceFAZolin SOD 2 GM in IV 1 EA IV ONE (07:25)
[2021-08-07] MEDS ORDERED: LR 1,000 ML IV ONE (07:25)
[2021-08-07] MEDS ORDERED: SCOPOLAMINE 1MG TRANSDERMAL PATCH As Ordered ONE (07:43)
[2021-08-07] MEDS ORDERED: GLYCOPYRROLATE INJ 0.2 MG/ML 2 ML VIAL As Ordered ONE (08:01)
[2021-08-07] MEDS ORDERED: ACETAMINOPHEN 1000MG 100ML IV BTL (OFIRMEV) (J0131 PER 10MG) As Ordered ONE (08:03)
[2021-08-07] MEDS ORDERED: KETOROLAC 60MG 2ML VIAL As Ordered ONE (08:06)
[2021-08-07] MEDS ORDERED: SUGAMMADEX SODIUM 500 MG/5 ML VIAL (BRIDION) As Ordered ONE (08:07)
[2021-08-07] MEDS ORDERED: ePHEDrine SULFATE 25 MG/5 ML(5MG/ML) SYRINGE As Ordered ONE (08:36)
[2021-08-07] MEDS ORDERED: KETAMINE HCL 200 MG/20 ML VIAL As Ordered ONE (09:10)
[2021-08-07] MEDS ORDERED: ALBUTEROL 6.7GM INHALER **FOR ANES. CART/OMNICELL ONLY As Ordered ONE (10:05)
[2021-08-07] MEDS ORDERED: NALBUPHINE HCL 10 MG/ML AMP (J2300) IV PRN (10:45)
[2021-08-07] MEDS ORDERED: NALOXONE INJ 0.4MG/1ML VIAL (J2310 PER 1MG) IV PRN (10:45)
[2021-08-07] MEDS ORDERED: EPIDURAL/PCA KEYS XX PRN (10:45)
[2021-08-07] MEDS ORDERED: METOCLOPRAMIDE INJ 10MG/2ML VIAL (J2765 PER 1) IV PRN (10:45)
[2021-08-07] MEDS ORDERED: MORPHINE 1MG/ML IN 0.9% NACL 100ML IV BAG IV PRN (10:45)
[2021-08-07] MEDS ORDERED: diphenhydrAMINE 50MG/ML VIAL (J1200) IV PRN (10:45)
[2021-08-07] MEDS ORDERED: PERCOCET 5MG/325MG TAB PO PRN (10:45)
[2021-08-07] MEDS ORDERED: ONDANSETRON 4MG/2ML VIAL IV PRN (10:45)
[2021-08-07] MEDS ORDERED: LR 1,000 ML IV SCH (10:45)
[2021-08-07] MEDS: LR 1,000 ML IV SCH ×2 (10:50→19:32)
[2021-08-07] MEDS ORDERED: IBUPROFEN 600MG TAB PO PRN (10:50)
[2021-08-07] MEDS: fentaNYL 100 MCG/2 ML INJECTION IV PRN ×4 (11:11→11:32)
[2021-08-07 14:00] VITALS: BP 119/74
[2021-08-07 14:30] VITALS: BP 112/73
[2021-08-07 15:30] VITALS: BP 110/70
[2021-08-07 16:30] VITALS: BP 111/68
[2021-08-07 18:30] VITALS: BP 111/67
[2021-08-07 22:00] VITALS: BP 119/72
[2021-08-08] MEDS: LR 1,000 ML IV SCH (02:50)
[2021-08-08 06:00] VITALS: BP 117/68
[2021-08-08] MEDS ORDERED: NORCO, ANEXSIA 5/325MG TABLET (HYDROcodone/ACETAMINOPHEN) PO PRN (06:00)
[2021-08-08 08:02] VITALS: BP 117/72
[2021-08-08 08:48] LABS: HEMATOCRIT 36.4 % (36.0-47.0); MEAN CORPUSCULAR HEMOGLOBIN 32.6 pg (27.0-33.0); MEAN CORPUSCULAR HGB CONC 32.7 g/dl (32.0-36.5); MEAN CORPUSCULAR VOLUME 99.7 fl (80.0-96.0); PLATELET COUNT, AUTOMATED 281 10^3/uL (150-450); RED BLOOD COUNT 3.65 10^6/uL (4.00-5.40); WHITE BLOOD COUNT 14.2 10^3/uL (4.0-10.0)
[2021-08-08 08:57] LABS: HEMOGLOBIN 11.9 g/dl (12.0-15.5)
[2021-08-08] MEDS ORDERED: MULTIVITAMINS/MINERALS THERAP 1 TAB PO SCH (09:00)
[2021-08-08] MEDS ORDERED: FLUoxetine 20 MG CAP PO SCH (09:00)
[2021-08-08] MEDS ORDERED: TELMISARTAN 20 MG TAB PO SCH (09:00)
[2021-08-08] MEDS ORDERED: atenoloL 25 MG TAB PO SCH (09:00)
[2021-08-08] MEDS ORDERED: PANTOPRAZOLE 40MG TAB (PROTONIX) PO SCH (09:00)
== END 2021-08-08 09:55 | disposition home or self-care (01) ==
LOC: M SDC 06:01 → M MS5PR 14:00 → M SDC 08-08 09:55
PROVIDERS: ATTEND Obstetrics & Gynecology
DX: R10.2 Pelvic and perineal pain (principal); D25.9 Leiomyoma of uterus, unspecified; K21.9 Gastro-esophageal reflux disease without esophagitis; Z98.84 Bariatric surgery status; I10 Essential (primary) hypertension; F41.9 Anxiety disorder, unspecified; F32.9 Major depressive disorder, single episode, unspecified; E66.9 Obesity, unspecified
CPT/HCPCS: 36415; 58571; 85027; 86850; 86900; 86901; 88307; J0131; J0690; J1100; J1885; J2250; J2405; J2765; J3010; S2900

== ENCOUNTER → 2021-10-09 | Outpatient (REF) ==
[~2021-10-09] MED LIST changes: -D31000TA2 PO; +VITA100093 PO
[2021-10-09 16:39] LABS: RSV AMPLIFICATION NEGATIVE (NEGATIVE)
== END ==
LOC: M EMP 13:12
PROVIDERS: ATTEND Family Medicine
DX: Z11.52 Encounter for screening for COVID-19 (principal)

== ENCOUNTER → 2021-11-11 | Outpatient (CLI) | payer BC ==
[2021-11-11 16:47] LABS: ALBUMIN 3.4 GM/DL (3.2-5.2); ALT/SGPT 26 U/L (12-78); BILIRUBIN,TOTAL 0.2 MG/DL (0.2-1.0); BLOOD UREA NITROGEN 18 MG/DL (7-18); CALCIUM LEVEL 9.8 MG/DL (8.5-10.1); CARBON DIOXIDE LEVEL 26 MEQ/L (21-32); CHLORIDE LEVEL 111 MEQ/L (98-107); CHOLESTEROL LEVEL 216 MG/DL (<200); CREATININE FOR GFR 0.86 MG/DL (0.55-1.30); FERRITIN 11 NG/ML (8-252); GLOMERULAR FILTRATION RATE > 60.0 (>58); GLUCOSE, FASTING 95 MG/DL (70-100); HDL CHOLESTEROL 45 MG/DL (>40); IRON (FE) 41 UG/DL (50-170); LDL CHOLESTEROL 117 MG/DL (<100); NON-HDL-C 171 MG/DL; PERCENT SATURATION 9.6 % (13.2-45.0); POTASSIUM SERUM 4.3 MEQ/L (3.5-5.1); SODIUM LEVEL 142 MEQ/L (136-145); TOTAL IRON BINDING CAPACITY 428 UG/DL (250-450); TOTAL PROTEIN 6.9 GM/DL (6.4-8.2); TRIGLYCERIDES LEVEL 270 MG/DL (<150)
[2021-11-11 16:51] LABS: TOTAL 25(OH) VITAMIN D 24.8 NG/ML (30.0-100.0); VITAMIN B12 LEVEL 598 PG/ML (247-911)
== END ==
LOC: M LAB 14:52
PROVIDERS: ATTEND Registered Nurse
DX: E66.01 Morbid (severe) obesity due to excess calories (principal)

== ENCOUNTER → 2021-12-11 | Outpatient (CLI) | payer BC ==
[2021-12-11 08:11] LABS: BASO # 0.1 10^3/uL (0.0-0.2); BASO % 0.8 % (0.0-1.0); EOS # 0.2 10^3/uL (0.0-0.5); HEMATOCRIT 37.8 % (36.0-47.0); HEMOGLOBIN 12.6 g/dl (12.0-15.5); LYMPH # 1.9 10^3/uL (1.5-5.0); LYMPH % 28.8 % (24.0-44.0); MEAN CORPUSCULAR HEMOGLOBIN 31.7 pg (27.0-33.0); MEAN CORPUSCULAR HGB CONC 33.3 g/dl (32.0-36.5); MONO # 0.6 10^3/uL (0.0-0.8); MONO % 9.2 % (2.0-8.0); NEUTROPHILS # 3.9 10^3/uL (1.5-8.5); NEUTROPHILS % 57.9 % (36.0-66.0); PLATELET COUNT, AUTOMATED 318 10^3/uL (150-450); RED BLOOD COUNT 3.98 10^6/uL (4.00-5.40); WHITE BLOOD COUNT 6.7 10^3/uL (4.0-10.0)
[2021-12-11 08:47] LABS: ALBUMIN 3.1 GM/DL (3.2-5.2); ALT/SGPT 25 U/L (12-78); BILIRUBIN,TOTAL 0.2 MG/DL (0.2-1.0); BLOOD UREA NITROGEN 17 MG/DL (7-18); CALCIUM LEVEL 9.4 MG/DL (8.5-10.1); CARBON DIOXIDE LEVEL 21 MEQ/L (21-32); CHLORIDE LEVEL 114 MEQ/L (98-107); CHOLESTEROL LEVEL 191 MG/DL (<200); CHOLESTEROL RISK RATIO 3.897 (<5); CREATININE FOR GFR 0.87 MG/DL (0.55-1.30); FREE T4 0.93 NG/DL (0.76-1.46); GLOMERULAR FILTRATION RATE > 60.0 (>58); GLUCOSE, FASTING 86 MG/DL (70-100); HDL CHOLESTEROL 49 MG/DL (>40); LDL CHOLESTEROL 115 MG/DL (<100); MAGNESIUM LEVEL 2.1 MG/DL (1.8-2.4); NON-HDL-C 142 MG/DL; NT-PRO BNP 107 PG/ML (<125); POTASSIUM SERUM 4.3 MEQ/L (3.5-5.1); SODIUM LEVEL 143 MEQ/L (136-145); THYROID STIMULATING HORMONE 0.931 uIU/ML (0.358-3.740); TOTAL 25(OH) VITAMIN D 28.3 NG/ML (30.0-100.0); TOTAL PROTEIN 6.5 GM/DL (6.4-8.2); TRIGLYCERIDES LEVEL 133 MG/DL (<150); VITAMIN B12 LEVEL 1051 PG/ML (247-911)
== END ==
LOC: M LAB 06:51
PROVIDERS: ATTEND Nurse Practitioner Family
DX: I10 Essential (primary) hypertension (principal); Z98.84 Bariatric surgery status; E55.9 Vitamin D deficiency, unspecified; R63.5 Abnormal weight gain

== ENCOUNTER → 2021-12-18 | Outpatient (CLI) | payer BC | LOC: M RAD 12:11 | PROVIDERS: ATTEND Nurse Practitioner Family | DX: M17.12 Unilateral primary osteoarthritis, left knee (principal); M85.88 Other specified disorders of bone density and structure, other site; M77.31 Calcaneal spur, right foot; M77.32 Calcaneal spur, left foot ==

== ENCOUNTER → 2021-12-23 | Outpatient (CLI) | payer BC ==
[~2021-12-23] MED LIST changes: +E-Z-GAS II EFFERVESCENT PACKET (SODIUM BICARB./CITRIC ACID/SIMETHICONE) As Ordered ONE; +E-Z-HD 98% w/w 340GM SUSP BTL As Ordered ONE; +E-Z-PAQUE 96% w/w SUSP 176GM BTL As Ordered ONE
== END ==
LOC: M RAD 10:29
PROVIDERS: ATTEND Surgery
DX: K44.9 Diaphragmatic hernia without obstruction or gangrene (principal); R63.5 Abnormal weight gain; Z98.84 Bariatric surgery status

== ENCOUNTER → 2022-06-17 | Outpatient (CLI) | payer BC | LOC: M RAD 09:14 | PROVIDERS: ATTEND Physician Assistant Medical | DX: R13.10 Dysphagia, unspecified (principal); K21.9 Gastro-esophageal reflux disease without esophagitis; K44.9 Diaphragmatic hernia without obstruction or gangrene ==

== ENCOUNTER → 2022-07-12 | Outpatient (CLI) | payer BC ==
[~2022-07-12] MED LIST changes: -E-Z-GAS II EFFERVESCENT PACKET (SODIUM BICARB./CITRIC ACID/SIMETHICONE) As Ordered ONE; -E-Z-HD 98% w/w 340GM SUSP BTL As Ordered ONE; -E-Z-PAQUE 96% w/w SUSP 176GM BTL As Ordered ONE; +FLUTISP; +PHEN15CA6 PO
== END ==
LOC: M LABSMTC 10:25
PROVIDERS: ATTEND Anesthesiology
DX: Z01.812 Encounter for preprocedural laboratory examination (principal); Z11.52 Encounter for screening for COVID-19

== ENCOUNTER 2022-07-17 06:56 | Day surgery (SDC) | payer BC ==
[~2022-07-17] VITALS: Ht 160 cm; Wt 104.3 kg
[~2022-07-17 06:56] MED LIST changes: +NS 1,000 ML IV ONE
[2022-07-17] MEDS ORDERED: propofoL 200 MG/20 ML VIAL As Ordered ONE ×2 (06:57→08:50)
[2022-07-17] MEDS ORDERED: LIDOCAINE 2% 100MG/5ML SDV (FOR ANES.) As Ordered ONE (06:57)
[2022-07-17] MEDS ORDERED: fentaNYL 100 MCG/2 ML INJECTION As Ordered ONE (07:40)
[2022-07-17 09:15] VITALS: BP 117/62
== END 2022-07-17 09:23 | disposition home or self-care (01) ==
LOC: M OPP 06:56
PROVIDERS: ATTEND Internal Medicine Gastroenterology
DX: Z12.11 Encounter for screening for malignant neoplasm of colon (principal); D12.4 Benign neoplasm of descending colon; D12.5 Benign neoplasm of sigmoid colon; D12.8 Benign neoplasm of rectum; K64.8 Other hemorrhoids; K22.89 Other specified disease of esophagus; K44.9 Diaphragmatic hernia without obstruction or gangrene; Z98.0 Intestinal bypass and anastomosis status; Q39.4 Esophageal web; Z79.899 Other long term (current) drug therapy; I10 Essential (primary) hypertension; F32.9 Major depressive disorder, single episode, unspecified; F41.9 Anxiety disorder, unspecified; F17.200 Nicotine dependence, unspecified, uncomplicated; Z80.3 Family history of malignant neoplasm of breast; Z80.43 Family history of malignant neoplasm of testis; Z80.52 Family history of malignant neoplasm of bladder

== ENCOUNTER → 2022-08-12 | Outpatient (CLI) | payer BC ==
[~2022-08-12] MED LIST changes: -NS 1,000 ML IV ONE
== END ==
LOC: M WHC 12:57
PROVIDERS: ATTEND Obstetrics & Gynecology
DX: Z12.31 Encounter for screening mammogram for malignant neoplasm of breast (principal)

== ENCOUNTER → 2022-08-14 | Outpatient (CLI) | payer BC ==
[2022-08-14 17:24] LABS: APPEARANCE, URINE HAZY (CLEAR); BILIRUBIN, URINE AUTO NEGATIVE (NEGATIVE); BLOOD, URINE BLOOD 2+ (NEGATIVE); COLOR, URINE YELLOW (YELLOW); GLUCOSE, URINE (UA) AUTO NEGATIVE (NEGATIVE); KETONE, URINE AUTO NEGATIVE (NEGATIVE); LEUKOCYTE ESTERASE, URINE AUTO NEGATIVE (NEGATIVE); NITRITE, URINE AUTO NEGATIVE (NEGATIVE); PROTEIN, URINE AUTO NEGATIVE (NEGATIVE); SPECIFIC GRAVITY URINE AUTO 1.017 (1.002-1.035); UROBILINOGEN, URINE AUTO 0.2 mg/dL (0.0-2.0)
[2022-08-14 17:33] LABS: BACTERIA, URINE AUTO NEGATIVE (NEGATIVE); RBC, URINE AUTO 43 /HPF (0-3); SQUAMOUS EPITHELIAL CELL UR AU 1 /HPF (0-6); WBC, URINE AUTO 0 /HPF (0-3)
== END ==
LOC: M RAD 14:26
PROVIDERS: ATTEND Physician Assistant Medical
DX: R30.0 Dysuria (principal); R31.29 Other microscopic hematuria

== ENCOUNTER → 2022-08-16 | Outpatient (REF) | payer BC | LOC: M SFHCPLAZ 08:18 | PROVIDERS: ATTEND Physician Assistant Medical | DX: N20.0 Calculus of kidney (principal) ==

== ENCOUNTER → 2022-09-10 | Outpatient (CLI) | payer BC | LOC: M PLALAB 10:37 | PROVIDERS: ATTEND Nurse Practitioner Family | DX: R60.9 Edema, unspecified (principal) ==

== ENCOUNTER → 2022-09-16 | Outpatient (CLI) | payer BC | LOC: M RAD 12:44 | PROVIDERS: ATTEND Physician Assistant Medical | DX: N20.0 Calculus of kidney (principal) ==

== ENCOUNTER → 2022-10-08 | Outpatient (CLI) | payer BC ==
[~2022-10-08] MED LIST changes: +FLUT50SP17; -FLUTISP
[2022-10-08 07:12] LABS: BASO # 0.1 10^3/uL (0.0-0.2); BASO % 0.9 % (0.0-1.0); EOS # 0.2 10^3/uL (0.0-0.5); EOS % 2.6 % (0.0-3.0); HEMATOCRIT 40.4 % (36.0-47.0); HEMOGLOBIN 13.4 g/dl (12.0-15.5); LYMPH # 2.5 10^3/uL (1.5-5.0); LYMPH % 30.4 % (24.0-44.0); MEAN CORPUSCULAR HEMOGLOBIN 32.1 pg (27.0-33.0); MEAN CORPUSCULAR HGB CONC 33.2 g/dl (32.0-36.5); MEAN CORPUSCULAR VOLUME 96.7 fl (80.0-96.0); MONO # 0.8 10^3/uL (0.0-0.8); MONO % 9.2 % (2.0-8.0); NEUTROPHILS # 4.6 10^3/uL (1.5-8.5); NEUTROPHILS % 56.4 % (36.0-66.0); PLATELET COUNT, AUTOMATED 324 10^3/uL (150-450); RED BLOOD COUNT 4.18 10^6/uL (4.00-5.40); WHITE BLOOD COUNT 8.1 10^3/uL (4.0-10.0)
[2022-10-08 07:42] LABS: ALBUMIN 3.2 G/DL (3.2-5.2); ALKALINE PHOSPHATASE 156 U/L (46-116); ALT/SGPT 23 U/L (7.0-40); AST/SGOT 24 U/L (<34); BILIRUBIN,TOTAL 0.3 MG/DL (0.3-1.2); BLOOD UREA NITROGEN 15 MG/DL (9-23); CALCIUM LEVEL 8.9 MG/DL (8.5-10.1); CARBON DIOXIDE LEVEL 26 MMOL/L (20-31); CHLORIDE LEVEL 109 MMOL/L (98-107); CHOLESTEROL LEVEL 185 MG/DL (<200); CHOLESTEROL RISK RATIO 3.32 (<5); CREATININE FOR GFR 0.86 MG/DL (0.55-1.30); GLOMERULAR FILTRATION RATE > 60.0 (>51); GLUCOSE, FASTING 97 MG/DL (60-100); HDL CHOLESTEROL 55.6 MG/DL (>40); IRON (FE) 82 UG/DL (50-170); LDL CHOLESTEROL 106.8 MG/DL (<100); NON-HDL-C 129.4 MG/DL; POTASSIUM SERUM 4.4 MMOL/L (3.5-5.1); SODIUM LEVEL 137 MMOL/L (136-145); TOTAL PROTEIN 6.1 G/DL (5.7-8.2); TRIGLYCERIDES LEVEL 113 MG/DL (<150)
[2022-10-08 07:43] LABS: FERRITIN 10.3 NG/ML (7.3-270.7); TOTAL 25(OH) VITAMIN D 30.9 NG/ML (20.0-100.0)
[2022-10-08 07:44] LABS: FREE T4 0.99 NG/DL (0.89-1.76); VITAMIN B12 LEVEL 697 PG/ML (211-911)
[2022-10-08 07:53] LABS: HEMOGLOBIN A1c 5.2 % (4.0-6.0)
== END ==
LOC: M LAB 06:39
PROVIDERS: ATTEND Nurse Practitioner Family
DX: I10 Essential (primary) hypertension (principal); E55.9 Vitamin D deficiency, unspecified; E78.5 Hyperlipidemia, unspecified; R63.5 Abnormal weight gain; Z98.84 Bariatric surgery status

== ENCOUNTER → 2023-04-23 | Outpatient (CLI) | payer BC ==
[~2023-04-23] MED LIST changes: +CETI10CH PO; +DICY-61 PO; +ONDA4TAB6 PO; +PERC5TAB12 PO; +SUCR1TA PO
[2023-04-23 10:04] LABS: HEMATOCRIT 40.2 % (36.0-47.0); HEMOGLOBIN 13.8 g/dl (12.0-15.5); MEAN CORPUSCULAR HEMOGLOBIN 31.9 pg (27.0-33.0); MEAN CORPUSCULAR HGB CONC 34.3 g/dl (32.0-36.5); MEAN CORPUSCULAR VOLUME 92.8 fl (80.0-96.0); PLATELET COUNT, AUTOMATED 343 10^3/uL (150-450); RED BLOOD COUNT 4.33 10^6/uL (4.00-5.40); WHITE BLOOD COUNT 9.1 10^3/uL (4.0-10.0)
[2023-04-23 10:27] LABS: URIC ACID 7.1 MG/DL (3.1-7.8)
[2023-04-23 10:29] LABS: ALBUMIN 3.3 G/DL (3.2-5.2); ALKALINE PHOSPHATASE 167 U/L (46-116); ALT/SGPT 29 U/L (7.0-40); AST/SGOT 28 U/L (<34); BILIRUBIN,TOTAL 0.4 MG/DL (0.3-1.2); BLOOD UREA NITROGEN 13 MG/DL (9-23); CARBON DIOXIDE LEVEL 26 MMOL/L (20-31); CHLORIDE LEVEL 104 MMOL/L (98-107); CHOLESTEROL LEVEL 200 MG/DL (<200); CREATININE FOR GFR 0.81 MG/DL (0.55-1.30); GLOMERULAR FILTRATION RATE > 60.0 (>51); GLUCOSE, FASTING 88 MG/DL (60-100); HDL CHOLESTEROL 51.2 MG/DL (>40); LDL CHOLESTEROL 112.6 MG/DL (<100); NON-HDL-C 148.8 MG/DL; POTASSIUM SERUM 3.9 MMOL/L (3.5-5.1); SODIUM LEVEL 140 MMOL/L (136-145); TOTAL PROTEIN 6.6 G/DL (5.7-8.2); TRIGLYCERIDES LEVEL 181 MG/DL (<150)
[2023-04-23 10:31] LABS: FERRITIN 13.2 NG/ML (7.3-270.7); TOTAL 25(OH) VITAMIN D 19.2 NG/ML (20.0-100.0)
[2023-04-23 10:32] LABS: VITAMIN B12 LEVEL 616 PG/ML (211-911)
== END ==
LOC: M RAD 07:39
PROVIDERS: ATTEND Nurse Practitioner Adult Health
DX: M79.675 Pain in left toe(s) (principal); I10 Essential (primary) hypertension; E78.5 Hyperlipidemia, unspecified; Z98.84 Bariatric surgery status; E55.9 Vitamin D deficiency, unspecified; M79.674 Pain in right toe(s)

== ENCOUNTER → 2023-04-23 | Outpatient (CLI) | payer BC | LOC: M LAB 07:41 | PROVIDERS: ATTEND Physician Assistant | DX: E66.01 Morbid (severe) obesity due to excess calories (principal); M79.675 Pain in left toe(s) ==

== ENCOUNTER → 2023-09-15 | Outpatient (CLI) | payer OTHER ==
[~2023-09-15] MED LIST changes: -FLUT50SP17; +FLUTISP
== END ==
LOC: M WHC 08:24
PROVIDERS: ATTEND Nurse Practitioner Family
DX: Z12.31 Encounter for screening mammogram for malignant neoplasm of breast (principal); N63.10 Unspecified lump in the right breast, unspecified quadrant

== ENCOUNTER → 2023-09-21 | Outpatient (CLI) | payer OTHER | LOC: M WHC 09:44 | PROVIDERS: ATTEND Nurse Practitioner Family | DX: Z12.31 Encounter for screening mammogram for malignant neoplasm of breast (principal); N60.01 Solitary cyst of right breast ==

== ENCOUNTER → 2023-10-19 | Outpatient (CLI) | payer OTHER ==
[2023-10-19 18:09] LABS: BASO # 0.1 10^3/uL (0.0-0.2); BASO % 0.9 % (0.0-1.0); EOS # 0.2 10^3/uL (0.0-0.5); EOS % 2.2 % (0.0-3.0); HEMATOCRIT 42.1 % (36.0-47.0); HEMOGLOBIN 14.4 g/dl (12.0-15.5); LYMPH # 3.1 10^3/uL (1.5-5.0); LYMPH % 33.9 % (24.0-44.0); MEAN CORPUSCULAR HEMOGLOBIN 31.2 pg (27.0-33.0); MEAN CORPUSCULAR HGB CONC 34.2 g/dl (32.0-36.5); MEAN CORPUSCULAR VOLUME 91.3 fl (80.0-96.0); MONO # 0.6 10^3/uL (0.0-0.8); MONO % 6.6 % (2.0-8.0); NEUTROPHILS # 5.2 10^3/uL (1.5-8.5); PLATELET COUNT, AUTOMATED 383 10^3/uL (150-450); RED BLOOD COUNT 4.61 10^6/uL (4.00-5.40); WHITE BLOOD COUNT 9.3 10^3/uL (4.0-10.0)
[2023-10-19 18:29] LABS: ALBUMIN 3.7 G/DL (3.2-5.2); ALKALINE PHOSPHATASE 162 U/L (46-116); ALT/SGPT 25 U/L (7.0-40); AST/SGOT 29 U/L (<34); BILIRUBIN,TOTAL 0.3 MG/DL (0.3-1.2); BLOOD UREA NITROGEN 16 MG/DL (9-23); CALCIUM LEVEL 9.6 MG/DL (8.5-10.1); CARBON DIOXIDE LEVEL 28 MMOL/L (20-31); CHLORIDE LEVEL 103 MMOL/L (98-107); CREATININE FOR GFR 0.94 MG/DL (0.55-1.30); FREE T4 1.06 NG/DL (0.89-1.76); GLOMERULAR FILTRATION RATE > 60.0 (>51); GLUCOSE, FASTING 78 MG/DL (60-100); POTASSIUM SERUM 4.2 MMOL/L (3.5-5.1); SODIUM LEVEL 138 MMOL/L (136-145); THYROID STIMULATING HORMONE 0.859 uIU/ML (0.55-4.78)
== END ==
LOC: M PLALAB 16:01
PROVIDERS: ATTEND Nurse Practitioner Family
DX: R45.86 Emotional lability (principal); I10 Essential (primary) hypertension

== ENCOUNTER → 2024-04-04 | Outpatient (CLI) | payer OTHER ==
[~2024-04-04] MED LIST changes: +FLUO-365 PO; -FLUO20CA22 PO; +ONDA-282 PO; -ONDA4TAB6 PO
[2024-04-04 10:15] LABS: BASO # 0.1 10^3/uL (0.0-0.2); BASO % 0.7 % (0.0-1.0); EOS # 0.2 10^3/uL (0.0-0.5); EOS % 2.1 % (0.0-3.0); HEMATOCRIT 42.2 % (36.0-47.0); HEMOGLOBIN 14.9 g/dl (12.0-15.5); LYMPH # 1.8 10^3/uL (1.5-5.0); LYMPH % 20.6 % (24.0-44.0); MEAN CORPUSCULAR HEMOGLOBIN 32.2 pg (27.0-33.0); MEAN CORPUSCULAR HGB CONC 35.3 g/dl (32.0-36.5); MEAN CORPUSCULAR VOLUME 91.1 fl (80.0-96.0); MONO # 0.7 10^3/uL (0.0-0.8); MONO % 8.5 % (2.0-8.0); NEUTROPHILS # 5.9 10^3/uL (1.5-8.5); NEUTROPHILS % 67.8 % (36.0-66.0); PLATELET COUNT, AUTOMATED 349 10^3/uL (150-450); RED BLOOD COUNT 4.63 10^6/uL (4.00-5.40); WHITE BLOOD COUNT 8.7 10^3/uL (4.0-10.0)
[2024-04-04 10:45] LABS: THYROID STIMULATING HORMONE 0.784 uIU/ML (0.55-4.78)
[2024-04-04 10:46] LABS: FREE T4 1.24 NG/DL (0.89-1.76)
[2024-04-04 10:47] LABS: ALBUMIN 3.4 G/DL (3.2-5.2); BILIRUBIN,TOTAL 0.5 MG/DL (0.3-1.2); CALCIUM LEVEL 9.5 MG/DL (8.5-10.1); CHOLESTEROL RISK RATIO 3.42 (<5); CREATININE FOR GFR 1.19 MG/DL (0.55-1.30); GLOMERULAR FILTRATION RATE 50.9 (>51); HDL CHOLESTEROL 53.1 MG/DL (>40); LDL CHOLESTEROL 102.1 MG/DL (<100); NON-HDL-C 128.9 MG/DL; POTASSIUM SERUM 3.1 MMOL/L (3.5-5.1); TOTAL PROTEIN 6.7 G/DL (5.7-8.2)
== END ==
LOC: M PLALAB 07:41
PROVIDERS: ATTEND Nurse Practitioner Family
DX: I10 Essential (primary) hypertension (principal)

== ENCOUNTER → 2024-04-14 | Outpatient (CLI) | payer OTHER ==
[2024-04-14 12:28] LABS: BLOOD UREA NITROGEN 11 MG/DL (9-23); CARBON DIOXIDE LEVEL 27 MMOL/L (20-31); CHLORIDE LEVEL 111 MMOL/L (98-107); CREATININE FOR GFR 0.94 MG/DL (0.55-1.30); GLOMERULAR FILTRATION RATE > 60.0 (>51); GLUCOSE, FASTING 88 MG/DL (60-100); POTASSIUM SERUM 3.8 MMOL/L (3.5-5.1); SODIUM LEVEL 141 MMOL/L (136-145)
== END ==
LOC: M PLALAB 07:35
PROVIDERS: ATTEND Nurse Practitioner Family
DX: I10 Essential (primary) hypertension (principal)

== ENCOUNTER → 2024-09-19 | Outpatient (CLI) | payer OTHER | LOC: M WHC 10:27 | PROVIDERS: ATTEND Nurse Practitioner Family | DX: Z12.31 Encounter for screening mammogram for malignant neoplasm of breast (principal) ==

== ENCOUNTER → 2024-09-27 | Outpatient (CLI) | payer OTHER | LOC: M RAD 14:15 | PROVIDERS: ATTEND Nurse Practitioner Family | DX: R19.09 Other intra-abdominal and pelvic swelling, mass and lump (principal); N94.89 Other specified conditions associated with female genital organs and menstrual cycle ==

== ENCOUNTER → 2024-09-29 | Outpatient (CLI) | payer OTHER ==
[2024-09-29 12:05] LABS: BASO # 0.1 10^3/uL (0.0-0.2); BASO % 0.5 % (0.0-1.0); EOS # 0.1 10^3/uL (0.0-0.5); EOS % 0.9 % (0.0-3.0); HEMATOCRIT 40.7 % (36.0-47.0); HEMOGLOBIN 14.3 g/dl (12.0-15.5); LYMPH # 2.5 10^3/uL (1.5-5.0); LYMPH % 27.3 % (24.0-44.0); MEAN CORPUSCULAR HEMOGLOBIN 32.4 pg (27.0-33.0); MEAN CORPUSCULAR HGB CONC 35.1 g/dl (32.0-36.5); MEAN CORPUSCULAR VOLUME 92.1 fl (80.0-96.0); MONO # 0.8 10^3/uL (0.0-0.8); MONO % 8.6 % (2.0-8.0); NEUTROPHILS # 5.7 10^3/uL (1.5-8.5); NEUTROPHILS % 62.4 % (36.0-66.0); PLATELET COUNT, AUTOMATED 368 10^3/uL (150-450); RED BLOOD COUNT 4.42 10^6/uL (4.00-5.40); WHITE BLOOD COUNT 9.1 10^3/uL (4.0-10.0)
[2024-09-29 12:34] LABS: TOTAL IRON BINDING CAPACITY 326 UG/DL (250-425)
[2024-09-29 12:35] LABS: ALBUMIN 3.4 G/DL (3.2-5.2); ALKALINE PHOSPHATASE 115 U/L (35-104); ALT/SGPT 21 U/L (7.0-40); AST/SGOT 20 U/L (<34); BILIRUBIN,TOTAL 0.4 MG/DL (0.3-1.2); BLOOD UREA NITROGEN 14 MG/DL (9-23); CALCIUM LEVEL 9.5 MG/DL (8.5-10.1); CARBON DIOXIDE LEVEL 30 MMOL/L (20-31); CHLORIDE LEVEL 104 MMOL/L (98-107); CHOLESTEROL LEVEL 172 MG/DL (<200); CHOLESTEROL RISK RATIO 2.67 (<5); CREATININE FOR GFR 0.93 MG/DL (0.55-1.30); GLOMERULAR FILTRATION RATE > 60.0 (>51); GLUCOSE, FASTING 75 MG/DL (60-100); HDL CHOLESTEROL 64.4 MG/DL (>40); IRON (FE) 62 UG/DL (50-170); LDL CHOLESTEROL 89.8 MG/DL (<100); NON-HDL-C 107.6 MG/DL; POTASSIUM SERUM 3.4 MMOL/L (3.5-5.1); SODIUM LEVEL 141 MMOL/L (136-145); TOTAL PROTEIN 6.5 G/DL (5.7-8.2); TRIGLYCERIDES LEVEL 89 MG/DL (<150)
[2024-09-29 12:36] LABS: VITAMIN B12 LEVEL 615 PG/ML (211-911)
== END ==
LOC: M PLALAB 08:12
PROVIDERS: ATTEND Nurse Practitioner Family
DX: I10 Essential (primary) hypertension (principal); E78.5 Hyperlipidemia, unspecified; Z98.84 Bariatric surgery status; E55.9 Vitamin D deficiency, unspecified

== ENCOUNTER → 2024-10-31 | Outpatient (CLI) | payer OTHER ==
[2024-10-31 14:25] LABS: BASO # 0.1 10^3/uL (0.0-0.2); BASO % 0.7 % (0.0-1.0); EOS # 0.2 10^3/uL (0.0-0.5); EOS % 1.8 % (0.0-3.0); HEMATOCRIT 42.1 % (36.0-47.0); HEMOGLOBIN 14.4 g/dl (12.0-15.5); LYMPH # 3.2 10^3/uL (1.5-5.0); MEAN CORPUSCULAR HEMOGLOBIN 32.1 pg (27.0-33.0); MEAN CORPUSCULAR HGB CONC 34.2 g/dl (32.0-36.5); MONO # 0.7 10^3/uL (0.0-0.8); NEUTROPHILS # 5.6 10^3/uL (1.5-8.5); NEUTROPHILS % 57.1 % (36.0-66.0); PLATELET COUNT, AUTOMATED 349 10^3/uL (150-450); RED BLOOD COUNT 4.48 10^6/uL (4.00-5.40); WHITE BLOOD COUNT 9.8 10^3/uL (4.0-10.0)
[2024-10-31 14:30] LABS: ALBUMIN 3.5 G/DL (3.2-5.2); BILIRUBIN,TOTAL 0.4 MG/DL (0.3-1.2); CALCIUM LEVEL 9.2 MG/DL (8.5-10.1); CREATININE FOR GFR 1.06 MG/DL (0.55-1.30); GLOMERULAR FILTRATION RATE 63.2 (>51); MAGNESIUM LEVEL 1.7 MG/DL (1.8-2.4); TOTAL PROTEIN 6.5 G/DL (5.7-8.2)
[2024-10-31 14:32] LABS: THYROID STIMULATING HORMONE 0.644 uIU/ML (0.55-4.78)
[2024-10-31 14:33] LABS: FREE T4 1.21 NG/DL (0.89-1.76)
== END ==
LOC: M PLALAB 10:21
PROVIDERS: ATTEND Nurse Practitioner Family
DX: Z00.00 Encounter for general adult medical examination without abnormal findings (principal); R53.83 Other fatigue; I10 Essential (primary) hypertension